=== PATIENT | male | born 1965 | race Caucasian/White ===

== ENCOUNTER 2016-07-02 19:49 | Emergency (ER) | payer OTHER ==
[~2016-07-02] VITALS: Ht 167.6 cm; Wt 72.7 kg
[~2016-07-02 19:49] MED LIST: CLEOCIN300 MG PO
[2016-07-02 20:31] LABS: HEMATOCRIT 41.5 % (38.0-50.0); MCH 31.8 PG (29.0-34.0); MCHC 35.7 G/DL (30.0-36.0); MCV 89.2 FL (86-99); MEAN PLAT.VOLUME 10.3 uM^3 (9.0-12.4); PLATELET COUNT 333 K/uL (156-360); RBC DIS.WIDTH-CV 12.5 % (11.8-14.6); RED BLOOD COUNT 4.65 M/uL (4.00-5.50); WHITE BLOOD COUNT 9.4 K/uL (4.1-10.2)
[2016-07-02 20:46] LABS: CHLORIDE 105 mEq/L (99-109); POTASSIUM 3.7 mEq/L (3.7-5.4); SODIUM 137 mEq/L (136-147)
[2016-07-02 20:48] LABS: GLUCOSE 138 mg/dL (70-99)
[2016-07-02 20:49] LABS: ANION GAP 12 MEQ/L (2-14)
[2016-07-02 20:50] LABS: TOTAL BILIRUBIN 0.2 mg/dL (0.0-1.0)
[2016-07-02 20:51] LABS: ALKALINE PHOSPHATASE 75 IU/L (3-129)
[2016-07-02 20:52] LABS: GFR ESTIMATE (CALCULATED) > 59 mL/min/
[2016-07-02 20:53] LABS: UREA NITROGEN (BUN) 23 mg/dL (9-23)
[2016-07-02 21:23] LABS: LIPASE 35 U/L (1.0-51.0)
[2016-07-02] MEDS ORDERED: ZOFRAN4 MG PO (23:41)
[2016-07-02] MEDS ORDERED: DILAUDID2 MG PO (23:41)
[2016-07-03 00:35] VITALS: BP 123/79
== END 2016-07-03 00:36 | disposition home or self-care (01) ==
LOC: EME 19:49
DX: K80.70 Calculus of gallbladder and bile duct without cholecystitis without obstruction (principal); R11.2 Nausea with vomiting, unspecified; R50.9 Fever, unspecified; R82.99 Other abnormal findings in urine; F17.200 Nicotine dependence, unspecified, uncomplicated; Z71.6 Tobacco abuse counseling
CPT/HCPCS: 74177; 76705; 80053; 81003; 83605; 83690; 85027; 86850; 86900; 86901; 87040; 93005; 99281; 99285; J1170; J1200; J2270; J2405; J2930; J7030; S0028